=== PATIENT | male | born 1970 | race Caucasian/White ===

== ENCOUNTER 2016-07-08 23:21 | Emergency (ER) | payer MEDICAID, OTHER, SELFPAY ==
[~2016-07-08] VITALS: Ht 172.7 cm; Wt 97.5 kg
[~2016-07-08 23:21] MED LIST: CIPR500T89 PO; FLOM5CAP PO; INSULANT SC; OXYC1TAB23 PO; PENI50TA PO; ZOFR20TA PO; ZOFR4TAB3 PO
[2016-07-09] MEDS ORDERED: KETOROLAC 30 MG/ML VIAL (J1885) IV ONE (02:15)
[2016-07-09 02:27] LABS: BASO % 0.5 % (0.0-1.0); EOS # 0.2 K/mm3 (0.0-0.50); EOS % 2.2 % (0.0-3.0); LARGE UNSTAINED CELL # 0.2 K/mm3 (0.0-0.4); LARGE UNSTAINED CELL % 1.7 % (0.0-4.0); LYMPH # 3.6 K/mm3 (1.5-4.5); LYMPH % 36.1 % (24.0-44.0); MONO # 0.5 K/mm3 (0.0-0.8); MONO % 5.7 % (0.0-5.0); NEUTROPHILS # 5.2 K/mm3 (1.8-7.7); NEUTROPHILS % 53.8 % (36.0-66.0); PLATELET COUNT, AUTOMATED 281 k/mm3 (150-450); RED CELL DISTRIBUTION WIDTH 12.8 % (11.5-14.5); WHITE BLOOD COUNT 9.6 K/mm3 (4.0-10.0)
[2016-07-09 02:45] LABS: ANION GAP 6 MEQ/L (8-16); BLOOD UREA NITROGEN 14 MG/DL (7-18); CALCIUM LEVEL 8.9 MG/DL (8.5-10.1); CARBON DIOXIDE LEVEL 31 MEQ/L (21-32); CHLORIDE LEVEL 105 MEQ/L (98-107); CREATININE FOR GFR 0.87 MG/DL (0.70-1.30); GLOMERULAR FILTRATION RATE > 60.0 (>60); GLUCOSE, FASTING 356 MG/DL (70-105); POTASSIUM SERUM 4.6 MEQ/L (3.5-5.1); SODIUM LEVEL 142 MEQ/L (136-145)
[2016-07-09 02:47] LABS: ALBUMIN 3.3 GM/DL (3.2-5.2); ALBUMIN/GLOBULIN RATIO 1.06 (1.00-1.93); ALKALINE PHOSPHATASE 96 U/L (45-117); ALT/SGPT 23 U/L (12-78); AMYLASE 49 U/L (25-115); AST/SGOT 10 U/L (15-37); BILIRUBIN,DIRECT < 0.1 MG/DL (0.0-0.2); BILIRUBIN,TOTAL 0.2 MG/DL (0.2-1.0); TOTAL PROTEIN 6.4 GM/DL (6.4-8.2)
--- NOTE | 2016-07-09 03:50 | REPUSA ---
CLINICAL HISTORY: Abdominal pain. TECHNIQUE: Multiple axial, sagittal and coronal CT images were obtained through the abdomen and pelvi s without administration of oral or IV contrast material. COMMENTS: The liver is of uniform attenuation without mass or defect. There is no intra or extrahepatic biliary ductal dilatation. The spleen is normal. The gallbladder is within normal limits. The pancreas is of normal contour and attenuation characteristics. There is no evidence of adrenal mass. The kidneys are normal in size, shape and configuration. There is no hydroureter or hydronephrosis. Two punctate nonobstruting calculi are noted in the mid pole of right kidney. There is no evidence for appendicitis. There is no bowel wall thickening. No evidence for small or la rge bowel obstruction. There is no evidence of abdominal ascites or lymphadenopathy. There is no evidence of intrinsic or extrinsic bladder mass. There is no pelvic ascites or lymphadeno vishal. [male/female field] Images of the lung bases show no evidence of pleural or parenchymal mass. There are no pleural effusi ons. The bony structures are free of lytic or blastic lesions. IMPRESSION: Two punctate nonobstruting calculi are noted in the mid pole of right kidney. No acute pathology. Thank you for your kind referral of this patient.
[2016-07-09 04:25] VITALS: BP 142/88
== END 2016-07-09 04:29 | disposition home or self-care (01) ==
LOC: M ED 07-09 02:23
DX: N20.0 Calculus of kidney (principal); F41.9 Anxiety disorder, unspecified; E11.9 Type 2 diabetes mellitus without complications; M54.9 Dorsalgia, unspecified; F32.9 Major depressive disorder, single episode, unspecified
CPT/HCPCS: 36415; 74176; 80048; 80076; 81001; 82150; 83690; 85025; 87086; 96374; 99282; J1885

== ENCOUNTER 2016-08-21 15:57 | Emergency (ER) | payer OTHER ==
[~2016-08-21] VITALS: Ht 172.7 cm; Wt 94.8 kg
[~2016-08-21 15:57] MED LIST changes: -LANTINJ4 SC
[2016-08-21 15:58] VITALS: BP 114/73
[2016-08-21] MEDS ORDERED: LANTINJ4 SC (16:12)
== END 2016-08-21 17:01 | disposition left against medical advice (07) ==
LOC: M ED 16:49
DX: M54.5 Low back pain (principal); Z53.21 Procedure and treatment not carried out due to patient leaving prior to being seen by health care provider

== ENCOUNTER → 2016-08-21 | Outpatient (REF) | payer OTHER ==
[~2016-08-21] MED LIST changes: +LANTINJ4 SC
[2016-08-21 17:35] LABS: CHOLESTEROL LEVEL 238 MG/DL (<200); TRIGLYCERIDES LEVEL 260 MG/DL (<150)
[2016-08-30 00:10] LABS: HEPATITIS C QUANTITATION HCV Not Detected IU/mL (.)
== END ==
LOC: M SFHCPLAZ 15:21
PROVIDERS: ATTEND Family Medicine
DX: E11.65 Type 2 diabetes mellitus with hyperglycemia (principal); M54.42 Lumbago with sciatica, left side; Z00.00 Encounter for general adult medical examination without abnormal findings

== ENCOUNTER → 2016-09-18 | Outpatient (REF) | payer OTHER ==
[~2016-09-18] MED LIST changes: +CIPR-249 PO; -CIPR500T89 PO; +LANTINJ4 SC
== END ==
LOC: M SFHCPLAZ 15:32
PROVIDERS: ATTEND Family Medicine
DX: Z15.89 Genetic susceptibility to other disease (principal)

== ENCOUNTER → 2016-11-07 | Outpatient (REF) | payer OTHER ==
[2016-11-07 13:51] LABS: BASO % 0.6 % (0.0-1.0); EOS # 0.2 K/mm3 (0.0-0.50); EOS % 2.5 % (0.0-3.0); LARGE UNSTAINED CELL # 0.2 K/mm3 (0.0-0.4); LARGE UNSTAINED CELL % 1.6 % (0.0-4.0); LYMPH # 3.3 K/mm3 (1.5-4.5); LYMPH % 34.9 % (24.0-44.0); MEAN CORPUSCULAR HEMOGLOBIN 30.9 pg (27.0-33.0); MEAN CORPUSCULAR HGB CONC 34.3 g/dl (32.0-36.5); MONO # 0.4 K/mm3 (0.0-0.8); MONO % 4.9 % (0.0-5.0); NEUTROPHILS % 55.5 % (36.0-66.0); PLATELET COUNT, AUTOMATED 314 k/mm3 (150-450); RED CELL DISTRIBUTION WIDTH 13.2 % (11.5-14.5); WHITE BLOOD COUNT 9.1 K/mm3 (4.0-10.0)
[2016-11-07 14:01] LABS: ALBUMIN 3.6 GM/DL (3.2-5.2); ALBUMIN/GLOBULIN RATIO 1.16 (1.00-1.93); ALKALINE PHOSPHATASE 69 U/L (45-117); ALT/SGPT 19 U/L (12-78); ANION GAP 9 MEQ/L (8-16); AST/SGOT 12 U/L (15-37); BILIRUBIN,TOTAL 0.3 MG/DL (0.2-1.0); BLOOD UREA NITROGEN 17 MG/DL (7-18); CARBON DIOXIDE LEVEL 26 MEQ/L (21-32); CHLORIDE LEVEL 107 MEQ/L (98-107); CREATININE FOR GFR 0.78 MG/DL (0.70-1.30); GLOMERULAR FILTRATION RATE > 60.0 (>60); GLUCOSE, FASTING 221 MG/DL (70-105); POTASSIUM SERUM 4.2 MEQ/L (3.5-5.1); SODIUM LEVEL 142 MEQ/L (136-145); TOTAL PROTEIN 6.7 GM/DL (6.4-8.2)
[2016-11-07 14:26] LABS: ERYTHROCYTE SEDIMENTATION RATE 13 mm/hr (0-15)
[2016-11-10 00:06] LABS: Lyme Disease IgG/IgM Antibodie <0.91 ISR (0.00-0.90); Lyme Disease IgM Ab Quantitati <0.80 index (0.00-0.79)
== END ==
LOC: M LABDRAW1 13:05
PROVIDERS: ATTEND Internal Medicine Rheumatology
DX: Z51.81 Encounter for therapeutic drug level monitoring (principal); Z79.899 Other long term (current) drug therapy; M35.9 Systemic involvement of connective tissue, unspecified; R53.83 Other fatigue; K21.9 Gastro-esophageal reflux disease without esophagitis; M45.0 Ankylosing spondylitis of multiple sites in spine

== ENCOUNTER 2019-01-05 13:04 | Emergency (ER) | payer OTHER ==
[~2019-01-05] VITALS: Ht 172.7 cm; Wt 90.7 kg
[~2019-01-05 13:04] MED LIST changes: +FLOM0.4C39 PO; -FLOM5CAP PO; +PENI500T PO; -PENI50TA PO; -ZOFR20TA PO; +ZOFR4TAB14 PO; +ZOFR4TAB16 PO; -ZOFR4TAB3 PO
[2019-01-05] MEDS ORDERED: BENZOCAINE 20% GEL 9GM TUBE (ANBESOL MAX STRENGTH) TOP ONE (16:15)
[2019-01-05] MEDS ORDERED: LIDOCAINE 2% W/ EPINEPHRINE 1.7 ML DENTAL INJ SM ONE (16:15)
[2019-01-05] MEDS ORDERED: KETOROLAC 30 MG/ML VIAL (J1885) IM ONE (16:15)
[2019-01-05 16:42] VITALS: BP 147/80
[2019-01-05] MEDS ORDERED: MAGICMW SSP (16:48)
[2019-01-05] MEDS ORDERED: KETO10TAB PO (16:48)
[2019-01-05] MEDS ORDERED: PENI500T PO (16:48)
== END 2019-01-05 17:08 | disposition home or self-care (01) ==
LOC: M ED 13:04
DX: K08.89 Other specified disorders of teeth and supporting structures (principal); Z96.0 Presence of urogenital implants; E78.5 Hyperlipidemia, unspecified; I10 Essential (primary) hypertension
CPT/HCPCS: 96372; 99283; J1885

== ENCOUNTER → 2019-05-06 | Outpatient (CLI) | payer OTHER ==
[~2019-05-06] MED LIST changes: +KETO10TAB PO; +MAGICMW SSP
--- NOTE | 2019-05-06 09:24 | REPPI ---
Lumbar spine five views: Comparison is 11/07/2016. Vertebral body heights and alignment are normal. 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 There is mild degenerative disc disease at L4-5, unchanged. There is no spondylolysis or spondylolisthesis. The pedicles and facets are unremarkable. Sacroiliac articulations are unremarkable. Impression: No significant interval change. 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 Mild L4-5 degenerative disc disease. Electronically Signed by Jarad Montez MD 05/06/2019 09:16 A
[2019-05-06 13:25] LABS: BASO # 0.1 10^3/uL (0.0-0.2); BASO % 0.8 % (0.0-1.0); EOS # 0.3 10^3/uL (0.0-0.5); EOS % 2.9 % (0.0-3.0); HEMATOCRIT 38.9 % (42.0-52.0); HEMOGLOBIN 13.3 g/dl (13.5-17.5); LYMPH # 3.2 10^3/uL (1.5-5.0); LYMPH % 35.5 % (24.0-44.0); MEAN CORPUSCULAR HGB CONC 34.2 g/dl (32.0-36.5); MEAN CORPUSCULAR VOLUME 87.8 fl (80.0-96.0); MONO # 0.6 10^3/uL (0.0-0.8); MONO % 6.3 % (0.0-5.0); NEUTROPHILS # 4.8 10^3/uL (1.5-8.5); NEUTROPHILS % 53.8 % (36.0-66.0); PLATELET COUNT, AUTOMATED 306 10^3/uL (150-450); RED BLOOD COUNT 4.43 10^6/uL (4.30-6.10); WHITE BLOOD COUNT 8.9 10^3/uL (4.0-10.0)
[2019-05-06 13:52] LABS: ALBUMIN 4.1 GM/DL (3.2-5.2); ALT/SGPT 23 U/L (12-78); BILIRUBIN,TOTAL 0.3 MG/DL (0.2-1.0); BLOOD UREA NITROGEN 16 MG/DL (7-18); CARBON DIOXIDE LEVEL 28 MEQ/L (21-32); CHLORIDE LEVEL 101 MEQ/L (98-107); CHOLESTEROL LEVEL 218 MG/DL (<200); CHOLESTEROL RISK RATIO 4.274 (<5); CREATININE FOR GFR 0.84 MG/DL (0.70-1.30); FREE T4 0.98 NG/DL (0.76-1.46); GLOMERULAR FILTRATION RATE > 60.0 (>60); GLUCOSE, FASTING 413 MG/DL (70-100); HDL CHOLESTEROL 51 MG/DL (>40); LDL CHOLESTEROL 129 MG/DL (<100); NON-HDL-C 167 MG/DL; POTASSIUM SERUM 5.1 MEQ/L (3.5-5.1); SODIUM LEVEL 134 MEQ/L (136-145); TOTAL PROTEIN 7.1 GM/DL (6.4-8.2); TRIGLYCERIDES LEVEL 188 MG/DL (<150)
[2019-05-06 14:07] LABS: CREATININE, URINE 22.1 MG/DL; MALB URINE SIEMENS < 5.0 MG/L; MAU/CREAT RATIO 22.6 MCG/MG (0.0-30.0)
[2019-05-06 14:57] LABS: HEMOGLOBIN A1c 12.2 %
== END ==
LOC: M PLAIMG 08:53
PROVIDERS: ATTEND Nurse Practitioner Family
DX: E11.65 Type 2 diabetes mellitus with hyperglycemia (principal); E78.2 Mixed hyperlipidemia; M54.5 Low back pain

== ENCOUNTER → 2020-01-03 | Outpatient (CLI) | payer OTHER ==
[2020-01-03 13:32] LABS: BASO # 0.1 10^3/uL (0.0-0.2); BASO % 0.6 % (0.0-1.0); EOS # 0.3 10^3/uL (0.0-0.5); EOS % 2.3 % (0.0-3.0); HEMATOCRIT 41.1 % (42.0-52.0); HEMOGLOBIN 13.7 g/dl (13.5-17.5); LYMPH # 3.5 10^3/uL (1.5-5.0); LYMPH % 28.9 % (24.0-44.0); MEAN CORPUSCULAR HEMOGLOBIN 29.4 pg (27.0-33.0); MEAN CORPUSCULAR HGB CONC 33.3 g/dl (32.0-36.5); MEAN CORPUSCULAR VOLUME 88.2 fl (80.0-96.0); MONO # 0.8 10^3/uL (0.0-0.8); MONO % 6.4 % (0.0-5.0); NEUTROPHILS # 7.4 10^3/uL (1.5-8.5); NEUTROPHILS % 61.4 % (36.0-66.0); PLATELET COUNT, AUTOMATED 359 10^3/uL (150-450); RED BLOOD COUNT 4.66 10^6/uL (4.30-6.10); WHITE BLOOD COUNT 12.1 10^3/uL (4.0-10.0)
[2020-01-03 13:43] LABS: HEMOGLOBIN A1c 7.4 %
[2020-01-03 14:08] LABS: MALB URINE SIEMENS 6.3 MG/L; MAU/CREAT RATIO 5.2 MCG/MG (0.0-30.0)
[2020-01-03 14:09] LABS: ALBUMIN 3.9 GM/DL (3.2-5.2); ALT/SGPT 22 U/L (12-78); BILIRUBIN,TOTAL 0.4 MG/DL (0.2-1.0); BLOOD UREA NITROGEN 15 MG/DL (7-18); CALCIUM LEVEL 9.2 MG/DL (8.5-10.1); CARBON DIOXIDE LEVEL 31 MEQ/L (21-32); CHLORIDE LEVEL 104 MEQ/L (98-107); CHOLESTEROL LEVEL 158 MG/DL (<200); CHOLESTEROL RISK RATIO 2.677 (<5); CREATININE FOR GFR 0.66 MG/DL (0.70-1.30); FREE T4 0.95 NG/DL (0.76-1.46); GLOMERULAR FILTRATION RATE > 60.0 (>60); GLUCOSE, FASTING 113 MG/DL (70-100); HDL CHOLESTEROL 59 MG/DL (>40); LDL CHOLESTEROL 84 MG/DL (<100); NON-HDL-C 99 MG/DL; POTASSIUM SERUM 4.8 MEQ/L (3.5-5.1); SODIUM LEVEL 137 MEQ/L (136-145); TOTAL PROTEIN 7.3 GM/DL (6.4-8.2); TRIGLYCERIDES LEVEL 76 MG/DL (<150)
== END ==
LOC: M WUC 10:21
PROVIDERS: ATTEND Nurse Practitioner Family
DX: E78.2 Mixed hyperlipidemia (principal); E11.65 Type 2 diabetes mellitus with hyperglycemia

== ENCOUNTER → 2020-01-16 | Outpatient (REF) | payer OTHER | LOC: M SFHCPLAZ 16:43 | PROVIDERS: ATTEND Nurse Practitioner Family | DX: Z20.828 Contact with and (suspected) exposure to other viral communicable diseases (principal) ==

== ENCOUNTER → 2020-03-26 | Outpatient (REF) | payer OTHER | LOC: M LAB REF 18:00 | PROVIDERS: ATTEND Physician Assistant | DX: U07.1 COVID-19 (principal) ==

== ENCOUNTER → 2020-05-22 | Outpatient (CLI) | payer OTHER ==
[2020-05-22 12:25] LABS: BASO # 0.1 10^3/uL (0.0-0.2); BASO % 0.6 % (0.0-1.0); EOS # 0.3 10^3/uL (0.0-0.5); EOS % 2.9 % (0.0-3.0); HEMATOCRIT 37.2 % (42.0-52.0); HEMOGLOBIN 12.1 g/dl (13.5-17.5); LYMPH # 3.6 10^3/uL (1.5-5.0); MEAN CORPUSCULAR HEMOGLOBIN 28.8 pg (27.0-33.0); MEAN CORPUSCULAR HGB CONC 32.5 g/dl (32.0-36.5); MEAN CORPUSCULAR VOLUME 88.6 fl (80.0-96.0); MONO # 0.7 10^3/uL (0.0-0.8); MONO % 6.7 % (2.0-8.0); NEUTROPHILS # 5.9 10^3/uL (1.5-8.5); NEUTROPHILS % 55.3 % (36.0-66.0); PLATELET COUNT, AUTOMATED 327 10^3/uL (150-450); WHITE BLOOD COUNT 10.7 10^3/uL (4.0-10.0)
[2020-05-22 12:53] LABS: HEMOGLOBIN A1c 7.6 %
[2020-05-22 12:59] LABS: ALBUMIN 3.6 GM/DL (3.2-5.2); ALT/SGPT 19 U/L (12-78); BILIRUBIN,TOTAL 0.2 MG/DL (0.2-1.0); BLOOD UREA NITROGEN 16 MG/DL (7-18); CALCIUM LEVEL 9.4 MG/DL (8.5-10.1); CARBON DIOXIDE LEVEL 30 MEQ/L (21-32); CHLORIDE LEVEL 105 MEQ/L (98-107); CHOLESTEROL LEVEL 232 MG/DL (<200); CHOLESTEROL RISK RATIO 3.803 (<5); CREATININE FOR GFR 0.78 MG/DL (0.70-1.30); FREE T4 0.81 NG/DL (0.76-1.46); GLOMERULAR FILTRATION RATE > 60.0 (>60); GLUCOSE, FASTING 155 MG/DL (70-100); HDL CHOLESTEROL 61 MG/DL (>40); LDL CHOLESTEROL 148 MG/DL (<100); NON-HDL-C 171 MG/DL; POTASSIUM SERUM 4.8 MEQ/L (3.5-5.1); SODIUM LEVEL 138 MEQ/L (136-145); THYROID STIMULATING HORMONE 0.844 uIU/ML (0.358-3.740); TOTAL PROTEIN 6.9 GM/DL (6.4-8.2); TRIGLYCERIDES LEVEL 117 MG/DL (<150)
== END ==
LOC: M LAB 11:44
PROVIDERS: ATTEND Nurse Practitioner Family
DX: E78.2 Mixed hyperlipidemia (principal); E11.65 Type 2 diabetes mellitus with hyperglycemia

== ENCOUNTER → 2020-09-11 | Outpatient (CLI) | payer OTHER ==
[2020-09-11 11:49] LABS: BASO # 0.1 10^3/uL (0.0-0.2); BASO % 0.6 % (0.0-1.0); EOS # 0.4 10^3/uL (0.0-0.5); EOS % 3.2 % (0.0-3.0); HEMATOCRIT 36.9 % (42.0-52.0); MEAN CORPUSCULAR HEMOGLOBIN 29.3 pg (27.0-33.0); MEAN CORPUSCULAR HGB CONC 32.5 g/dl (32.0-36.5); MONO # 0.7 10^3/uL (0.0-0.8); MONO % 6.7 % (2.0-8.0); NEUTROPHILS # 6.6 10^3/uL (1.5-8.5); NEUTROPHILS % 60.9 % (36.0-66.0); PLATELET COUNT, AUTOMATED 272 10^3/uL (150-450); WHITE BLOOD COUNT 10.8 10^3/uL (4.0-10.0)
[2020-09-11 12:19] LABS: CREATININE, URINE 87.3 MG/DL; MALB URINE SIEMENS 5.1 MG/L; MAU/CREAT RATIO 5.8 MCG/MG (0.0-30.0)
[2020-09-11 12:31] LABS: ALBUMIN 3.5 GM/DL (3.2-5.2); ALT/SGPT 20 U/L (12-78); BILIRUBIN,TOTAL 0.2 MG/DL (0.2-1.0); BLOOD UREA NITROGEN 16 MG/DL (7-18); CALCIUM LEVEL 8.5 MG/DL (8.5-10.1); CARBON DIOXIDE LEVEL 29 MEQ/L (21-32); CHLORIDE LEVEL 107 MEQ/L (98-107); CHOLESTEROL LEVEL 153 MG/DL (<200); CHOLESTEROL RISK RATIO 2.428 (<5); CREATININE FOR GFR 0.68 MG/DL (0.70-1.30); GLOMERULAR FILTRATION RATE > 60.0 (>60); GLUCOSE, FASTING 178 MG/DL (70-100); HDL CHOLESTEROL 63 MG/DL (>40); LDL CHOLESTEROL 75 MG/DL (<100); NON-HDL-C 90 MG/DL; POTASSIUM SERUM 4.7 MEQ/L (3.5-5.1); SODIUM LEVEL 138 MEQ/L (136-145); TOTAL PROTEIN 6.6 GM/DL (6.4-8.2); TRIGLYCERIDES LEVEL 73 MG/DL (<150)
[2020-09-11 12:51] LABS: HEMOGLOBIN A1c 7.8 %
== END ==
LOC: M LAB 10:45
PROVIDERS: ATTEND Nurse Practitioner Family
DX: E11.65 Type 2 diabetes mellitus with hyperglycemia (principal)

== ENCOUNTER → 2020-11-02 | Outpatient (CLI) | payer OTHER ==
--- NOTE | 2020-11-03 11:50 | REPVR ---
PROCEDURE INFORMATION: Exam: MR Lumbar Spine Without Contrast Exam date and time: 11/02/2020 11:37 AM Age: 50 years old Clinical indication: Low back pain; Additional info: Radiculopathy TECHNIQUE: Imaging protocol: Multiplanar magnetic resonance images of the lumbar spine without intravenous contrast. COMPARISON: CR SPINE LS COMPLETE 05/06/2019 9:05 AM FINDINGS: Vertebrae: There is 2 mm of grade 1 retrolisthesis of L4 with respect to L5. Normal vertebral body alignment is otherwise preserved. There is a Schmorl's node along the inferior endplate of L4. There are hemangiomas at L3. Spinal cord: Normal signal. No cord compression. L1-L2: There is shallow disc bulging. There is [id number] facet and ligamentous hypertrophy. The spinal canal and neural foramina are patent. L2-L3: There is shallow disc bulging. There is moderate facet and ligamentous hypertrophy. The spinal canal and neural foramina are patent. L3-L4: There is shallow disc bulging. There is moderate facet and ligamentous hypertrophy. The spinal canal and neural foramina are patent. L4-L5: There is diffuse disc bulging/uncovering related to listhesis. There is moderate facet hypertrophy. There is mild right neural foraminal narrowing. L5-S1: There is shallow disc bulging. There is moderate facet hypertrophy. The spinal canal and neural foramina are patent. Soft tissues: Unremarkable. IMPRESSION: Degenerative disc disease and spondylosis. No overt canal or neural foraminal compromise. Electronically signed by: Muna King On 11/03/2020 11:50:23 AM
== END ==
LOC: M PLAIMG 11:02
PROVIDERS: ATTEND Orthopaedic Surgery
DX: M54.16 Radiculopathy, lumbar region (principal)

== ENCOUNTER → 2021-04-06 | Outpatient (CLI) | payer OTHER ==
[2021-04-06 15:19] LABS: BASO # 0.1 10^3/uL (0.0-0.2); BASO % 0.7 % (0.0-1.0); EOS # 0.2 10^3/uL (0.0-0.5); EOS % 1.9 % (0.0-3.0); HEMATOCRIT 41.3 % (42.0-52.0); HEMOGLOBIN 13.9 g/dl (13.5-17.5); LYMPH # 3.4 10^3/uL (1.5-5.0); LYMPH % 32.7 % (24.0-44.0); MEAN CORPUSCULAR HEMOGLOBIN 29.5 pg (27.0-33.0); MEAN CORPUSCULAR HGB CONC 33.7 g/dl (32.0-36.5); MEAN CORPUSCULAR VOLUME 87.7 fl (80.0-96.0); MONO # 0.7 10^3/uL (0.0-0.8); MONO % 6.4 % (2.0-8.0); NEUTROPHILS # 5.9 10^3/uL (1.5-8.5); NEUTROPHILS % 57.9 % (36.0-66.0); PLATELET COUNT, AUTOMATED 334 10^3/uL (150-450); RED BLOOD COUNT 4.71 10^6/uL (4.30-6.10); WHITE BLOOD COUNT 10.3 10^3/uL (4.0-10.0)
[2021-04-06 16:00] LABS: MALB URINE SIEMENS 17.4 MG/L; MAU/CREAT RATIO 8.2 MCG/MG (0.0-30.0)
[2021-04-06 16:04] LABS: ALBUMIN 3.8 GM/DL (3.2-5.2); ALT/SGPT 26 U/L (12-78); BILIRUBIN,TOTAL 0.4 MG/DL (0.2-1.0); BLOOD UREA NITROGEN 15 MG/DL (7-18); CALCIUM LEVEL 9.5 MG/DL (8.5-10.1); CARBON DIOXIDE LEVEL 29 MEQ/L (21-32); CHLORIDE LEVEL 98 MEQ/L (98-107); CHOLESTEROL LEVEL 174 MG/DL (<200); CHOLESTEROL RISK RATIO 2.806 (<5); CREATININE FOR GFR 1.11 MG/DL (0.70-1.30); GLOMERULAR FILTRATION RATE > 60.0 (>56); GLUCOSE, FASTING 241 MG/DL (70-100); HDL CHOLESTEROL 62 MG/DL (>40); LDL CHOLESTEROL 87 MG/DL (<100); NON-HDL-C 112 MG/DL; POTASSIUM SERUM 4.9 MEQ/L (3.5-5.1); SODIUM LEVEL 134 MEQ/L (136-145); TOTAL PROTEIN 7.1 GM/DL (6.4-8.2); TRIGLYCERIDES LEVEL 127 MG/DL (<150)
[2021-04-06 16:26] LABS: HEMOGLOBIN A1c 10.6 %
== END ==
LOC: M PLALAB 13:35
PROVIDERS: ATTEND Nurse Practitioner Family
DX: E11.65 Type 2 diabetes mellitus with hyperglycemia (principal); E78.2 Mixed hyperlipidemia

== ENCOUNTER 2021-06-21 06:29 | Emergency (ER) | payer OTHER ==
[~2021-06-21] VITALS: Ht 172.7 cm; Wt 90.9 kg
[2021-06-21] MEDS ORDERED: METH-1164 PO (07:18)
[2021-06-21] MEDS ORDERED: PRED20TA PO (07:18)
[2021-06-21] MEDS ORDERED: methocarbamoL 500 MG TAB PO ONE (07:20)
[2021-06-21] MEDS ORDERED: KETOROLAC 30 MG/ML 1ML VIAL IM ONE (07:20)
[2021-06-21 08:20] VITALS: BP 116/70
== END 2021-06-21 08:35 | disposition home or self-care (01) ==
LOC: M ED 06:29
DX: M54.50 Low back pain, unspecified (principal); E11.9 Type 2 diabetes mellitus without complications; F41.8 Other specified anxiety disorders; F32.A Depression, unspecified; Z79.4 Long term (current) use of insulin
CPT/HCPCS: 96372; 99283; J1885

== ENCOUNTER 2022-12-25 06:37 | Day surgery (SDC) | payer OTHER ==
[~2022-12-25] VITALS: Ht 170.2 cm; Wt 92.5 kg
[~2022-12-25 06:37] MED LIST changes: +ATOR1TAB21 PO; +GABA-282 PO; +HYDR-3363 PO; +METF750T36 PO; +METH-1164 PO; +NS 1,000 ML IV ONE; +PRED20TA PO; +STEG15TA PO; +TRUL10IN SC; +ZOLO100T PO
[2022-12-25] MEDS ORDERED: propofoL 200 MG/20 ML VIAL As Ordered ONE ×2 (08:38→08:42)
[2022-12-25] MEDS ORDERED: METOPROLOL 5 MG/5 ML VIAL As Ordered ONE (08:47)
[2022-12-25 09:30] VITALS: BP 129/61; O2SAT 100
== END 2022-12-25 09:33 | disposition home or self-care (01) ==
LOC: M OPP 06:37
PROVIDERS: ATTEND Internal Medicine Gastroenterology
DX: Z12.11 Encounter for screening for malignant neoplasm of colon (principal); D12.6 Benign neoplasm of colon, unspecified; K57.30 Diverticulosis of large intestine without perforation or abscess without bleeding; K64.4 Residual hemorrhoidal skin tags; K64.8 Other hemorrhoids; Z87.891 Personal history of nicotine dependence; Z79.02 Long term (current) use of antithrombotics/antiplatelets; Z79.4 Long term (current) use of insulin; Z79.82 Long term (current) use of aspirin; Z79.899 Other long term (current) drug therapy

== ENCOUNTER → 2023-02-06 | Outpatient (CLI) | payer OTHER ==
[~2023-02-06] MED LIST changes: -NS 1,000 ML IV ONE
[2023-02-06 18:11] LABS: ALBUMIN 3.9 G/DL (3.2-5.2); ALKALINE PHOSPHATASE 92 U/L (46-116); ALT/SGPT 19 U/L (7.0-40); AST/SGOT 11 U/L (<34); BILIRUBIN,TOTAL 0.3 MG/DL (0.3-1.2); BLOOD UREA NITROGEN 17 MG/DL (9-23); CALCIUM LEVEL 9.4 MG/DL (8.5-10.1); CARBON DIOXIDE LEVEL 28 MMOL/L (20-31); CHLORIDE LEVEL 104 MMOL/L (98-107); CREATININE FOR GFR 0.69 MG/DL (0.70-1.30); GLOMERULAR FILTRATION RATE > 60.0 (>56); GLUCOSE, FASTING 185 MG/DL (60-100); POTASSIUM SERUM 5.3 MMOL/L (3.5-5.1); SODIUM LEVEL 140 MMOL/L (136-145); TOTAL PROTEIN 7.1 G/DL (5.7-8.2)
[2023-02-06 18:29] LABS: HEMOGLOBIN A1c 8.3 % (4.0-6.0)
== END ==
LOC: M PLALAB 16:28
PROVIDERS: ATTEND Nurse Practitioner Family
DX: E11.65 Type 2 diabetes mellitus with hyperglycemia (principal)

== ENCOUNTER → 2024-01-11 | Outpatient (CLI) | payer OTHER ==
[~2024-01-11] MED LIST changes: +GABA-1172 PO; -GABA-282 PO
[2024-01-11 18:54] LABS: CREATININE, URINE 187.3 MG/DL; MAU/CREAT RATIO 1.6 MCG/MG (0.0-30.0)
[2024-01-11 19:23] LABS: BASO # 0.1 10^3/uL (0.0-0.2); BASO % 0.9 % (0.0-1.0); EOS # 0.2 10^3/uL (0.0-0.5); EOS % 2.2 % (0.0-3.0); HEMATOCRIT 38.8 % (42.0-52.0); HEMOGLOBIN 12.5 g/dl (13.5-17.5); LYMPH # 2.8 10^3/uL (1.5-5.0); MEAN CORPUSCULAR HEMOGLOBIN 27.4 pg (27.0-33.0); MEAN CORPUSCULAR HGB CONC 32.2 g/dl (32.0-36.5); MEAN CORPUSCULAR VOLUME 84.9 fl (80.0-96.0); MONO # 0.9 10^3/uL (0.0-0.8); MONO % 8.3 % (2.0-8.0); NEUTROPHILS % 62.5 % (36.0-66.0); PLATELET COUNT, AUTOMATED 336 10^3/uL (150-450); RED BLOOD COUNT 4.57 10^6/uL (4.30-6.10); WHITE BLOOD COUNT 11.1 10^3/uL (4.0-10.0)
[2024-01-11 19:49] LABS: ALBUMIN 3.8 G/DL (3.2-5.2); ALKALINE PHOSPHATASE 89 U/L (40-129); ALT/SGPT 17 U/L (7.0-40); AST/SGOT 11 U/L (<34); BILIRUBIN,TOTAL 0.3 MG/DL (0.3-1.2); BLOOD UREA NITROGEN 17 MG/DL (9-23); CALCIUM LEVEL 9.7 MG/DL (8.5-10.1); CARBON DIOXIDE LEVEL 28 MMOL/L (20-31); CHLORIDE LEVEL 104 MMOL/L (98-107); CHOLESTEROL LEVEL 217 MG/DL (<200); CHOLESTEROL RISK RATIO 3.35 (<5); GLOMERULAR FILTRATION RATE > 60.0 (>56); GLUCOSE, FASTING 148 MG/DL (60-100); HDL CHOLESTEROL 64.6 MG/DL (>40); IRON (FE) 60 UG/DL (65-175); LDL CHOLESTEROL 124.6 MG/DL (<100); NON-HDL-C 152.4 MG/DL; PERCENT SATURATION 14.6 % (19.7-50.0); POTASSIUM SERUM 4.8 MMOL/L (3.5-5.1); PSA SCREENING 0.19 NG/ML (< 4.00); SODIUM LEVEL 139 MMOL/L (136-145); TOTAL IRON BINDING CAPACITY 411 UG/DL (250-425); TOTAL PROTEIN 7.1 G/DL (5.7-8.2); TRIGLYCERIDES LEVEL 139 MG/DL (<150)
[2024-01-11 20:05] LABS: HEMOGLOBIN A1c 8.5 % (4.0-6.0)
== END ==
LOC: M PLALAB 15:40
PROVIDERS: ATTEND Nurse Practitioner Family
DX: E11.65 Type 2 diabetes mellitus with hyperglycemia (principal); E78.2 Mixed hyperlipidemia; Z12.5 Encounter for screening for malignant neoplasm of prostate; D64.9 Anemia, unspecified

== ENCOUNTER → 2024-05-13 | Outpatient (CLI) | payer OTHER ==
[2024-05-13 11:05] LABS: IRON (FE) 57 UG/DL (65-175)
[2024-05-13 11:06] LABS: ALBUMIN 3.8 G/DL (3.2-5.2); ALKALINE PHOSPHATASE 96 U/L (40-129); ALT/SGPT 22 U/L (7.0-40); AST/SGOT 16 U/L (<34); BASO # 0.1 10^3/uL (0.0-0.2); BASO % 0.8 % (0.0-1.0); BILIRUBIN,TOTAL 0.6 MG/DL (0.3-1.2); BLOOD UREA NITROGEN 15 MG/DL (9-23); CALCIUM LEVEL 9.3 MG/DL (8.5-10.1); CARBON DIOXIDE LEVEL 26 MMOL/L (20-31); CHLORIDE LEVEL 102 MMOL/L (98-107); CHOLESTEROL LEVEL 163 MG/DL (<200); CHOLESTEROL RISK RATIO 2.74 (<5); CREATININE FOR GFR 0.67 MG/DL (0.70-1.30); EOS # 0.3 10^3/uL (0.0-0.5); EOS % 2.7 % (0.0-3.0); GLOMERULAR FILTRATION RATE > 60.0 (>56); GLUCOSE, FASTING 260 MG/DL (60-100); HDL CHOLESTEROL 59.4 MG/DL (>40); HEMATOCRIT 35.5 % (42.0-52.0); HEMOGLOBIN 11.5 g/dl (13.5-17.5); LDL CHOLESTEROL 81.6 MG/DL (<100); LYMPH # 2.1 10^3/uL (1.5-5.0); LYMPH % 23.1 % (24.0-44.0); MEAN CORPUSCULAR HEMOGLOBIN 28.2 pg (27.0-33.0); MEAN CORPUSCULAR HGB CONC 32.4 g/dl (32.0-36.5); MONO # 0.7 10^3/uL (0.0-0.8); MONO % 7.3 % (2.0-8.0); NEUTROPHILS % 65.8 % (36.0-66.0); NON-HDL-C 103.6 MG/DL; PERCENT SATURATION 13.7 % (19.7-50.0); PLATELET COUNT, AUTOMATED 320 10^3/uL (150-450); POTASSIUM SERUM 4.6 MMOL/L (3.5-5.1); RED BLOOD COUNT 4.08 10^6/uL (4.30-6.10); SODIUM LEVEL 139 MMOL/L (136-145); TOTAL IRON BINDING CAPACITY 417 UG/DL (250-425); TOTAL PROTEIN 7.2 G/DL (5.7-8.2); TRIGLYCERIDES LEVEL 110 MG/DL (<150); WHITE BLOOD COUNT 9.1 10^3/uL (4.0-10.0)
[2024-05-13 11:08] LABS: THYROID STIMULATING HORMONE 1.705 uIU/ML (0.55-4.78)
[2024-05-13 11:11] LABS: HEMOGLOBIN A1c 10.1 % (4.0-6.0)
[2024-05-13 11:30] LABS: CREATININE, URINE 153.8 MG/DL
[2024-05-13 11:31] LABS: MAU/CREAT RATIO 2.6 MCG/MG (0.0-30.0)
== END ==
LOC: M PLALAB 08:26
PROVIDERS: ATTEND Nurse Practitioner Family
DX: Z00.00 Encounter for general adult medical examination without abnormal findings (principal); D64.9 Anemia, unspecified; M54.12 Radiculopathy, cervical region; F32.9 Major depressive disorder, single episode, unspecified; E78.2 Mixed hyperlipidemia; E11.65 Type 2 diabetes mellitus with hyperglycemia; M50.30 Other cervical disc degeneration, unspecified cervical region

== ENCOUNTER → 2024-11-13 | Outpatient (CLI) | payer OTHER ==
[~2024-11-13] MED LIST changes: -FLOM0.4C39 PO; +TAMS-18 PO
[2024-11-13 15:36] LABS: BASO # 0.1 10^3/uL (0.0-0.2); BASO % 0.7 % (0.0-1.0); EOS # 0.2 10^3/uL (0.0-0.5); EOS % 2.2 % (0.0-3.0); LYMPH # 3.0 10^3/uL (1.5-5.0); LYMPH % 28.7 % (24.0-44.0); MONO # 0.8 10^3/uL (0.0-0.8); MONO % 7.5 % (2.0-8.0); NEUTROPHILS # 6.2 10^3/uL (1.5-8.5); NEUTROPHILS % 60.1 % (36.0-66.0); PLATELET COUNT, AUTOMATED 338 10^3/uL (150-450)
[2024-11-13 16:01] LABS: ESTIMATED AVERAGE GLUCOSE 192.0 MG/DL (60-110)
[2024-11-13 16:05] LABS: CREATININE, URINE 110.9 MG/DL
[2024-11-13 16:06] LABS: MALB URINE SIEMENS < 3.0 MG/L
[2024-11-13 16:07] LABS: ALT/SGPT 21 U/L (7.0-40); AST/SGOT 21 U/L (<34); CALCIUM LEVEL 9.3 MG/DL (8.5-10.1); CARBON DIOXIDE LEVEL 28 MMOL/L (20-31); CHLORIDE LEVEL 102 MMOL/L (98-107); CHOLESTEROL LEVEL 142 MG/DL (<200); CHOLESTEROL RISK RATIO 2.39 (<5); CREATININE FOR GFR 0.74 MG/DL (0.70-1.30); GLOMERULAR FILTRATION RATE > 90.0 (>56); IRON (FE) 65 UG/DL (65-175); LDL CHOLESTEROL 63.5 MG/DL (<100); NON-HDL-C 82.7 MG/DL; PERCENT SATURATION 16.5 % (19.7-50.0); POTASSIUM SERUM 5.2 MMOL/L (3.5-5.1); PSA SCREENING 0.15 NG/ML (< 4.00); SODIUM LEVEL 138 MMOL/L (136-145); TRIGLYCERIDES LEVEL 96 MG/DL (<150)
[2024-11-13 16:10] LABS: FREE T4 0.81 NG/DL (0.89-1.76)
== END ==
LOC: M PLALAB 14:00
PROVIDERS: ATTEND Nurse Practitioner Family
DX: D64.9 Anemia, unspecified (principal); E55.9 Vitamin D deficiency, unspecified; E78.2 Mixed hyperlipidemia; E11.65 Type 2 diabetes mellitus with hyperglycemia; Z12.5 Encounter for screening for malignant neoplasm of prostate